=== PATIENT | female | born 1970 | race Caucasian/White ===

== ENCOUNTER 2023-06-21 08:51 | Outpatient (OUT) | payer OTHER, SELFPAY ==
--- NOTE | 2023-06-21 | XR_ITS ---
The [address] [address] Patient Name: ANH BYRNE MRN: [id number] date: 1970 Sex: F Assigned Patient Location: Current Patient Location: Accession/Order Number: [id number] Exam Date: 06/21/2023 08:59 Report Date: 06/22/2023 07:22 At the request of: TAMMY MIMS Procedure: XR foot LT min 3V PROCEDURE: XR foot LT min 3V HISTORY: LEFT FOOT PAIN COMPARISON: XR foot left 05/25/2021 FINDINGS: BONES:Stable mechanical fusion of the medial aspect of the midfoot, prosthetic spacer within the midfoot, and fusion of the talocalcaneal joints. No appreciable hardware fracture loosening. No bone fracture dislocation. Complete loss of plantar arch. Chronic degenerative spurring and heterotopic bone formation along dorsal margin of the talonavicular joint. SOFT TISSUES:No visible soft tissue swelling. EFFUSION:None visible. OTHER: Negative. XR/XR foot LT min 3V IMPRESSION: 1. Stable surgical changes without evidence of hardware failure or change in alignment. 2. Stable chronic degenerative changes. Electronically authenticated by: TINY MUNOZ Date: 06/22/2023 07:22
== END 2023-06-21 08:52 | disposition home or self-care (01) ==
LOC: WC 08:51
PROVIDERS: PCP Podiatrist Foot & Ankle Surgery; Visit Provider Podiatrist Foot & Ankle Surgery
DX: E11.621 Type 2 diabetes mellitus with foot ulcer (principal); L97.428 Non-pressure chronic ulcer of left heel and midfoot with other specified severity
CPT/HCPCS: 11042; 73630; G0463